=== PATIENT | male | born 2000 ===

== ENCOUNTER 2019-04-12 01:03 | Emergency (ER) | payer MEDICAID ==
--- NOTE | 2019-04-12 01:35 | EDM.PDOC ---
ED HPI GENERAL MEDICAL PROBLEM - General Chief Complaint: Upper Extremity Injury/Pain Stated Complaint: Left Wrist Pain Time Seen by Provider: 04/12/19 01:27 Source of Information: Reports: Patient, RN, RN Notes Reviewed History Limitations: Reports: No Limitations - History of Present Illness INITIAL COMMENTS - FREE TEXT/NARRATIVE: Patient presents to the ED at [facility] for the evaluation of acute left wrist pain. Patient states his pain started about 2-3 hours ago. He denies any injury or trauma that he is aware of. 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 He denies any numbness, tingling or paresthesia. He states the pain is along the later aspect of the left hand/wrist. Onset Date: 04/11/19 Onset Time: 22:30 Left Outer Wrist Pain Score (Numeric/FACES): 9 - Related Data Allergies Allergy/AdvReac Type Severity Reaction Status Date / Time No Known Allergies Allergy Verified 04/12/19 01:23 Home Meds: Home Meds methylPREDNISolone [Medrol] 4 mg PO ASDIRECTED #1 dosepk 04/12/19 [Rx] Review of Systems - Review of Systems Review Of Systems: See Below Constitutional: Denies: Chills, Fever Respiratory: Reports: No Symptoms Cardiovascular: Reports: No Symptoms Musculoskeletal: Reports: Joint Pain, Muscle Pain, Muscle Stiffness. Denies: Joint Swelling Skin: Reports: No Symptoms Neurological: Reports: No Symptoms ED EXAM, GENERAL - Physical Exam Exam: See Below Exam Limited By: No Limitations General Appearance: Alert, No Apparent Distress Respiratory/Chest: No Respiratory Distress, Lungs Clear, Normal Breath Sounds Cardiovascular: Normal Peripheral Pulses, Regular Rate, Rhythm Peripheral Pulses: 2+: Radial (L), Radial (R) Extremities: Normal Inspection, Normal Capillary Refill, Limited Range of Motion (left wrist due to pain), Other (tendons of left wrist/hand intact; normal ROM). No: Joint Swelling, Increased Warmth Neurological: Alert, Oriented. No: Sensory/Motor Deficit Course - Vital Signs Last Recorded V/S: Last Vital Signs Temp 97.2 F 04/12/19 01:25 Pulse 71 04/12/19 01:25 Resp 16 04/12/19 01:25 BP 154/101 H 04/12/19 01:25 Pulse Ox 97 04/12/19 01:25 - Orders/Labs/Meds Orders: Active Orders 24 hr Category Date Time Status Wrist Comp Min 3V Lt [CR] Stat Exams 04/12/19 01:32 Taken - Radiology Interpretation Free Text/Narrative:: Wrist, Left: No acute fracture or dislocation seen on plain film. Departure - Departure Time of Disposition: 02:05 Disposition: Home, Self-Care 01 Condition: Good Clinical Impression: Left wrist sprain Qualifiers: Encounter type: initial encounter Qualified Code(s): S63.502A - Unspecified sprain of left wrist, initial encounter - Discharge Information *PRESCRIPTION DRUG MONITORING PROGRAM REVIEWED*: Not Applicable *COPY OF PRESCRIPTION DRUG MONITORING REPORT IN PATIENT NENO: Not Applicable Prescriptions: methylPREDNISolone [Medrol] 4 mg PO ASDIRECTED #1 dosepk Instructions: Wrist Sprain, Adult Referrals: Eusebio Guy PA-C [Primary Care Provider] - Forms: ED Department Discharge Additional Instructions: 1. Stay well hydrated and rest 2. Rest, elevate, and ice several times as day 3. Use Tylenol/Advil as needed 4. 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 Call with any questions or concerns - Problem List Review Problem List Initiated/Reviewed/Updated: Yes - My Orders Last 24 Hours: My Active Orders 04/12/19 01:32 Wrist Comp Min 3V Lt [CR] Stat - Assessment/Plan Last 24 Hours: My Active Orders 04/12/19 01:32 Wrist Comp Min 3V Lt [CR] Stat Assessment:: Left wrist sprain Plan: Assessment and xray findings discussed with the patient. Recommend rest, elevation, and ice. Use Tylenol and Advil as needed. See PCP as symptoms warrant.
--- NOTE | 2019-04-12 08:27 | CR ---
[id number] RAD/RAD Wrist Left 3V Min EXAM: LEFT WRIST 3 VIEWS INDICATION: Pain. COMPARISON: None. DISCUSSION: A chronic healed first proximal phalanx base fracture and small adjacent ununited fracture fragment are suggested. Soft tissue swelling in the dorsum of the wrist. Mild triscaphe and first carpometacarpal osteoarthritis. No acute fracture is identified. IMPRESSION: 1. Soft tissue swelling at the level of the wrist. No definite acute fractures. Hamilton Miller MD 04/12/19 0827 Thank you for allowing us to participate in the care of your patient.
== END 2019-04-12 02:09 | disposition home or self-care (01) ==
LOC: VM.ED 01:03
DX: S63.502A Unspecified sprain of left wrist, initial encounter (principal); Y93.64 Activity, baseball
CPT/HCPCS: 73110-LT; 99283-25